=== PATIENT | female | born 1980 | race Caucasian/White ===

== ENCOUNTER 2019-08-07 09:42 | Outpatient (REF) | payer OTHER, SELFPAY ==
--- NOTE | 2019-08-07 09:00 | PAPFT_PTH ---
PATIENT: Jen Luke LOC: [facility] U#:[id number] AGE/SX: 39/F ROOM: RE08/07/[address]: Bi Scott : 1980 BED: DIS: 08/07/2019 SPEC #: [id number] RECD: 08/07/19 12:47 STATUS: BUNNY REWellington #: [id number] LEO: 08/07/19 09:[address]: Bi Scott DEPT: [facility] Cytology RECD BY: Luann Perez ENTERED: 08/07/19 12:47 SP TYPE: PAPFT OT DR: Unknown,Unknown Tissues: 1 - CX/ENDOCX FOR PAP SMEARS Procedures: PAP THIN PREP/UVM Screening HPV DNA PROBE Comments: [id number]
[2019-08-07 13:05] LABS: Anion Gap 8.5 mmol/L (3-11); BUN 15 mg/dL (7-18); CO2 26.5 mmol/L (21.0-32.0); CREATININE 0.83 mg/dL (0.55-1.02); Calcium 8.9 mg/dL (8.5-10.1); Calculated LDL 127 mg/dL; Chloride 103 mmol/L (98-107); Cholesterol 201 mg/dL (50-200); Glucose 105 mg/dL (70-100); HDL Cholesterol 57 mg/dL (40-60); Potassium 4.2 mmol/L (3.5-5.1); Sodium 138 mmol/L (136-145); Triglyceride 86 mg/dL (30-150)
== END 2019-08-07 10:02 ==
LOC: NCHCN 09:42
PROVIDERS: Visit Provider Specialist/Technologist Athletic Trainer
DX: Z00.00 Encounter for general adult medical examination without abnormal findings (principal); Z13.220 Encounter for screening for lipoid disorders; Z13.228 Encounter for screening for other metabolic disorders; Z12.4 Encounter for screening for malignant neoplasm of cervix; Z11.51 Encounter for screening for human papillomavirus (HPV)
CPT/HCPCS: 80048; 80061; 88142; 87624

== ENCOUNTER 2019-09-20 11:38 | Outpatient (REF) | payer OTHER, SELFPAY ==
--- NOTE | 2019-09-20 10:00 | ENDO_PTH ---
PATIENT: Jen Luke LOC: [facility] U#:[id number] AGE/SX: 39/F ROOM: RE09/20/[address]: Jon Coburn MD : 1980 BED: DIS: 09/20/2019 SPEC #: [id number] RECD: 09/20/19 17:21 STATUS: BUNNY REQ #: [id number] LEO: 09/20/19 10:[address]: Jon Coburn DEPT: Surgical Specimen RECD BY: Luann Perez ENTERED: 09/20/19 17:22 SP TYPE: Endo OTHR DR: iB Scott Unknown,Unknown Tissues: 1 - ENDOCERVICAL BX/CURRETTE 2 - CERVICAL BIOPSY 3 - CERVICAL BIOPSY Procedures: GROSS AND MICRO LEVEL 4 Comments: [id number]
== END 2019-09-20 11:58 ==
LOC: LBN 11:38
PROVIDERS: Visit Provider Obstetrics & Gynecology
DX: N87.1 Moderate cervical dysplasia (principal); R87.613 High grade squamous intraepithelial lesion on cytologic smear of cervix (HGSIL); R87.810 Cervical high risk human papillomavirus (HPV) DNA test positive
CPT/HCPCS: 88305

== ENCOUNTER 2020-07-10 00:28 | Outpatient (CLI) | payer OTHER, SELFPAY ==
--- NOTE | 2020-07-10 13:30 | ETT_ITS ---
APPROVED REPORT Exam: Exercise Treadmill Patient Location: Out-Patient Room/Bed: Stress Nurse: Lucille Middleton RN BMI: 0 Baseline Rhythm: Sinus Rhythm Comment: Rare PVC's Indications: Patient reports an increase in palpitations and chest discomfort over the last one and o ne half years. She describes her chest discomfort as ??? heavy flutter/emptiness??? in her upper mids ternal/left chest and in her back between her shoulder blades associated with right arm tingling and ???soreness??? and numbness in the fingers of her right hand fingers. She states these sensations get worse in the latter half of the day. She also reports occasionally her palpitations make her ???drop to my knees???, ???things get blurry???, ???so I took it down???. She reports these symptoms get bet ter with relaxing. Medical History Medical History: Palpitations, Obesity, Depression. Cardiac Medications: None, Allergies: Vicodin, Codeine, Pseudoephedrine. Cardiac Risk Factors: FHX of CAD, Smoking Previous Cardiac Procedures: None Pretest Chest Pain Characteristics: None reported per patient. Exercise History: Physically active Physical Disabilities: None Lung Sounds: Clear to auscultation Heart Sounds: Regular Stress Test Details Test: Exercise stress testing was performed using a Adalberto protocol. Rest Stress HR Resting HR Supine: 75 bpm Max Heart Rate (APMHR): 178 bpm Resting HR Standin bpm Target HR (85% APMHR): 151 bpm Max HR Achieved: 174 bpm % of APMHR: 97 HR response to stress: Normal HR response to stress BP Resting BP Supine: 132/78 mmHg Resting BP Standin/72 mmHg Max BP: 156/66 mmHg BP response to stress: Normal blood pressure response to stress. ECG Resting ECG: Sinus Rhythm Ectopy: Rare PVC's Stress ECG: Sinus Tachycardia ST Change: Normal Arrhythmia: None Recovery ECG: Sinus Rhythm Recovery ST Change: Normal Recovery Arrhythmia: None Clinical Reason for Termination: Fatigue Stress Symptoms: Patient reported arms burning Exercise duration: 9 min07 sec Highest Stage Reached: Stage 3: 3.4 mph at 14% grade. Exercise capacity: 10.31 METs Functional Capacity: Average Capacity Stress ECG Conclusion 1. The patient exercised for 9 minutes (10METS). 2. The patients had no symptoms of angina. 3. There was no evidence of ischemia on the ECG portion of the study. 4. The Sultana Score ( 8) estimates an annual cardiovascular mortality of 0% and a five year survival of 95%. Using the Sultana Score there is a low probability of any angiographic coronary disease. Stress Test Summary STAGE Time (mins) Speed (mph) Grade (%) HR BP SYMPTOMS METS Supine 75 132/78 Standing 91 124/72 1 3 1.7 10 119 128/70 4.6 2 6 2.5 12 152 140/64 7 3 9 3.4 14 174 10.2 1 min recovery 152 156/66 3 min recovery 141 144/68 6 min recovery 98 126/72
== END 2020-07-10 00:48 ==
PROVIDERS: PCP Nurse Practitioner Family; Visit Provider Internal Medicine Cardiovascular Disease
DX: R07.9 Chest pain, unspecified (principal); R00.2 Palpitations; I49.3 Ventricular premature depolarization; F17.210 Nicotine dependence, cigarettes, uncomplicated; Z82.49 Family history of ischemic heart disease and other diseases of the circulatory system
CPT/HCPCS: 93017

== ENCOUNTER 2020-11-19 11:51 | Outpatient (REF) | payer OTHER, SELFPAY ==
--- NOTE | 2020-11-19 11:00 | ENDO_PTH ---
PATIENT: Jen Luke LOC: [facility] U#:[id number] AGE/SX: 40/F ROOM: RE11/19/[address]: Keisha Holly : 1980 BED: DIS: 11/19/2020 SPEC #: [id number] RECD: 11/19/20 12:54 STATUS: BUNNY REWellington #: [id number] LEO: 11/19/20 11:[address]: Keisha Holly DEPT: Surgical Specimen RECD BY: Luann Perez ENTERED: 11/19/20 12:55 SP TYPE: Endo OTHR DR: Maribeth Mckeon Tissues: 1 - ENDOCERVICAL BX/CURRETTE 2 - CERVICAL BIOPSY Procedures: GROSS AND MICRO LEVEL 4 Comments: [id number]
== END 2020-11-19 12:11 ==
LOC: LBN 11:51
PROVIDERS: PCP Nurse Practitioner Family; Visit Provider Obstetrics & Gynecology Gynecology
DX: N87.1 Moderate cervical dysplasia (principal); N88.8 Other specified noninflammatory disorders of cervix uteri
CPT/HCPCS: 88305

== ENCOUNTER 2020-12-03 02:36 | Outpatient (CLI) | payer OTHER, SELFPAY ==
--- NOTE | 2020-12-03 | DI.US_ITS ---
EXAM: MG MAMMO DIAGNOSTIC BI and U/S breast RT complete CLINICAL HISTORY: DIAGNOSTIC, DARKENING OF SKIN AND NODULE, ABNL FINDINGS, N64.59. TECHNIQUE: Craniocaudal and mediolateral oblique Full Field Digital Mammography views with Computer Aided Diagnosis followed by Tomosynthesis and right breast ultrasound. COMPARISON: No previous for comparison. This is a baseline mammogram. FINDINGS: Mammography/Tomosynthesis: Masses/Architectural Distortion: None seen. Microcalcifictions: No suspicious pleomorphic-type are seen. Skin Thickening/Nipple Retraction: None. Right breast US: Echotexture: Normal appearance of the glandular tissue. Shadowing: No suspicious foci. Cyst: None. Solid lesions: There is an ovoid hypoechoic lesion within the skin layer measuring 0.8 x 0.3 x 0.7 cm . This is at the 7 o'clock position of the right breast 7 cm from the nipple. This corresponds to t he palpable abnormality. No posterior acoustic enhancement or shadowing is seen. There appears to b e evidence of a tract to the skin surface. No internal blood flow is seen. There is no communicatio n with underlying breast tissue. The findings are suspicious for a sebaceous cyst. Ductal dilation: None. IMPRESSION: 1. No evidence of malignancy is noted. The palpable abnormality corresponds to a nodule within the sk in layer as described above. This is suspicious for sebaceous cyst. 2. Unless there is more urgent need, follow-up screening mammography is recommended, as per [place] [employer] guidelines. 3. The findings were discussed with the patient on the date of the examination. BI-RADS Category 1 - Negative Breast Density - Category B - Scattered areas of fibroglandular density Breast density Category C or D implies that the patient has dense breast tissue. Dense breast tissue can make it harder to find cancer on a mammogram. Dense breast tissue is also associated with an incr eased risk of breast cancer. This information about the result of the mammogram report was provided to the patient to raise their awareness. Use this report when you speak with the patient about their risks for breast cancer, which includes their family history. At that time, you may recommend additional screening tests (Ultrasoun d or MRI) as these tests may add significant information. A negative radiographic report should not delay biopsy if a dominant or clinically suspicious mass is present. Up to ten percent of cancers are not identified on mammography. A negative report may reinforce clinical impression. Adenosis and dense breasts may obscure an underlying neoplasm. False positive reports average 6 to 10%. Patient will receive a letter notifying them of these results.
== END 2020-12-03 02:37 | disposition home or self-care (01) ==
LOC: DI 02:36
PROVIDERS: PCP Nurse Practitioner Family; Visit Provider Nurse Practitioner Family
DX: R92.8 Other abnormal and inconclusive findings on diagnostic imaging of breast (principal); N64.59 Other signs and symptoms in breast
CPT/HCPCS: 76642; 77062; 77066; G0279

== ENCOUNTER 2021-02-12 13:51 | Outpatient (REF) | payer OTHER, SELFPAY ==
--- NOTE | 2021-02-12 13:35 | CER_PTH ---
PATIENT: Jen Luke LOC: [facility] U#:[id number] AGE/SX: 40/F ROOM: RE02/12/[address]: Keisha Holly : 1980 BED: DIS: 02/12/2021 SPEC #: [id number] RECD: 02/12/21 17:55 STATUS: BUNNY REWellington #: [id number] LEO: 02/12/21 13:[address]: Keisha Holly DEPT: Surgical Specimen RECD BY: Luann Perez ENTERED: 02/12/21 17:55 SP TYPE: CER LONNY DR: Maribeth Mckeon Tissues: 1 - CERVICAL BIOPSY 2 - CERVICAL BIOPSY Procedures: GROSS AND MICRO LEVEL 5 Comments: [id number]
== END 2021-02-12 13:52 | disposition home or self-care (01) ==
LOC: LBN 13:51
PROVIDERS: PCP Nurse Practitioner Family; Visit Provider Obstetrics & Gynecology Gynecology
DX: N87.1 Moderate cervical dysplasia (principal)
CPT/HCPCS: 88305; 88307

== ENCOUNTER 2021-02-16 15:57 | Outpatient (REF) | payer OTHER, SELFPAY ==
[2021-02-18 12:53] LABS: COVID-19 RT-PCR UVMMC Result Negative (Negative)
== END 2021-02-16 15:58 | disposition home or self-care (01) ==
LOC: NCHCN 15:57
PROVIDERS: PCP Nurse Practitioner Family; Visit Provider Nurse Practitioner Family
DX: Z20.822 Contact with and (suspected) exposure to COVID-19 (principal); R50.9 Fever, unspecified; M79.18 Myalgia, other site
CPT/HCPCS: U0003

== ENCOUNTER 2021-02-19 03:58 | Outpatient (CLI) | payer OTHER, SELFPAY ==
[2021-02-18 14:41] LABS: Abs Immature Grans 0.02 10^3/uL (0.0-0.06); Absolute Basophil Count 0.03 10^3/uL (0.0-0.2); Absolute Eosinophil Count 0.13 10^3/uL (0.0-0.7); Absolute Lymphocyte Count 1.87 10^3/uL (1.2-3.4); Absolute Monocyte Count 0.83 10^3/uL (0.1-0.8); Absolute Neutrophil Count 3.89 10^3/uL (1.2-6.7); Basophils % 0.4; Eosinophils % 1.9; HCT 42.8 % (36.0-46.0); Immature Grans % 0.3; Lymphocytes % 27.6; MCH 30.1 pg (27.0-33.0); MCHC 32.7 % (32.0-36.0); Monocytes % 12.3; Neutrophils % 57.5; Nucleated RBC 0 %; Platelet Count 231 10^3/uL (130-400); RBC 4.65 10^6/uL (3.93-5.22); RDW 12.7 % (11.7-14.6); RDW-SD 42.6 fL; WBC 6.77 10^3/uL (4.4-10.8)
[2021-02-18 15:46] LABS: ALT 27 U/L (14-59); AST 16 U/L (15-37); Albumin 3.9 g/dL (3.4-5.0); Alkaline Phosphatase 85 U/L (46-116); Anion Gap 6.5 mmol/L (3-11); BUN 16 mg/dL (7-18); Bilirubin, Total 0.3 mg/dL (0.2-1.0); CO2 30.5 mmol/L (21.0-32.0); CREATININE 0.9 mg/dL (0.55-1.02); Calcium 9.3 mg/dL (8.5-10.1); Chloride 103 mmol/L (98-107); Glucose 89 mg/dL (74-106); Potassium 4.5 mmol/L (3.5-5.1); Sodium 140 mmol/L (136-145); Total Protein 7.4 g/dL (6.4-8.2)
== END 2021-02-19 03:59 | disposition home or self-care (01) ==
LOC: LBO 03:58
PROVIDERS: PCP Nurse Practitioner Family; Visit Provider Obstetrics & Gynecology Gynecology
DX: R50.9 Fever, unspecified (principal); Z98.890 Other specified postprocedural states
CPT/HCPCS: 36415; 80053; 85025

== ENCOUNTER 2022-01-14 12:30 | Outpatient (REF) | payer BC, SELFPAY ==
[2022-01-14 14:42] LABS: HCT 44.1 % (36.0-46.0); HGB 14.3 g/dL (11.2-15.7); MCH 29.5 pg (27.0-33.0); MCHC 32.4 % (32.0-36.0); MCV 90.9 fL (80-95); MPV 9.4 fL (8.0-11.0); Platelet Count 307 10^3/uL (130-400); RBC 4.85 10^6/uL (3.93-5.22); RDW 12.3 % (11.7-14.6); RDW-SD 41.3 fL; WBC 9.04 10^3/uL (4.4-10.8)
[2022-01-14 15:35] LABS: ALT 28 U/L (14-59); AST 16 U/L (15-37); Alkaline Phosphatase 91 U/L (46-116); BUN 15 mg/dL (7-18); Bilirubin, Total 0.4 mg/dL (0.2-1.0); CREATININE 0.7 mg/dL (0.55-1.02); Calcium 9.1 mg/dL (8.5-10.1); Chloride 102 mmol/L (98-107); Glucose 92 mg/dL (74-106); Potassium 4.6 mmol/L (3.5-5.1); Sodium 139 mmol/L (136-145); TSH (W/Ref FT4) 1.47 uIU/mL (0.36-3.74); Total Protein 7.3 g/dL (6.4-8.2); Vitamin B12 472 pg/mL (193-986)
== END 2022-01-14 12:31 | disposition home or self-care (01) ==
LOC: NCHCN 12:30
PROVIDERS: PCP Nurse Practitioner Family; Visit Provider Nurse Practitioner Family
DX: R00.2 Palpitations (principal); Z71.3 Dietary counseling and surveillance; E55.9 Vitamin D deficiency, unspecified
CPT/HCPCS: 80053; 82306; 85027; 82607; 84443

== ENCOUNTER 2022-03-18 08:30 | Outpatient (CLI) | payer BC, SELFPAY | END 2022-03-18 23:59 | disposition home or self-care (01) | LOC: RT 03-22 14:11 | PROVIDERS: PCP Nurse Practitioner Family; Visit Provider Nurse Practitioner Family | DX: R00.2 Palpitations (principal) | CPT/HCPCS: 93246 ==

== ENCOUNTER 2022-03-31 13:26 | Outpatient (REF) | payer BC, SELFPAY ==
--- NOTE | 2022-03-31 13:15 | PAPFT_PTH ---
PATIENT: Jen Luke LOC: [facility] U#:[id number] AGE/SX: 41/F ROOM: RE03/31/[address]: Keisha Holly : 1980 BED: DIS: 03/31/2022 SPEC #: [id number] RECD: 03/31/22 18:17 STATUS: BUNNY REWellington #: [id number] LEO: 03/31/22 13:[address]: Keisha Holly [facility] Cytology RECD BY: Luann Perez ENTERED: 03/31/22 18:17 SP TYPE: PAPFT OTHR DR: Maribeth Mckeon Tissues: 1 - CX/ENDOCX FOR PAP SMEARS Procedures: PAP THIN PREP/UVM Screening HPV DNA PROBE Comments: [id number]
== END 2022-03-31 13:27 | disposition home or self-care (01) ==
LOC: LBN 13:26
PROVIDERS: PCP Nurse Practitioner Family; Visit Provider Obstetrics & Gynecology Gynecology
DX: Z12.4 Encounter for screening for malignant neoplasm of cervix (principal); R87.611 Atypical squamous cells cannot exclude high grade squamous intraepithelial lesion on cytologic smear of cervix (ASC-H); Z11.51 Encounter for screening for human papillomavirus (HPV)
CPT/HCPCS: 88142; 87624

== ENCOUNTER 2022-06-24 15:22 | Outpatient (REF) | payer BC, SELFPAY ==
--- NOTE | 2022-06-24 13:45 | ENDO_PTH ---
PATIENT: Jen Luke LOC: [facility] U#:[id number] AGE/SX: 42/F ROOM: RE06/24/[address]: Keisha Holly : 1980 BED: DIS: 06/24/2022 SPEC #: [id number] RECD: 06/24/22 17:44 STATUS: BUNNY REWellington #: [id number] LEO: 06/24/22 13:[address]: Keisha Holly DEPT: Surgical Specimen RECD BY: Luann Perez ENTERED: 06/24/22 17:45 SP TYPE: Endo OTHR DR: Maribeth Mckeon Tissues: 1 - ENDOCERVICAL BX/CURRETTE 2 - CERVICAL BIOPSY Procedures: GROSS AND MICRO LEVEL 4 Comments: [id number]
== END 2022-06-24 15:23 | disposition home or self-care (01) ==
LOC: LBN 15:22
PROVIDERS: PCP Nurse Practitioner Family; Visit Provider Obstetrics & Gynecology Gynecology
DX: R87.610 Atypical squamous cells of undetermined significance on cytologic smear of cervix (ASC-US) (principal)
CPT/HCPCS: 88305

== ENCOUNTER 2022-08-20 16:47 | Outpatient (CLI) | payer BC, SELFPAY ==
--- NOTE | 2022-08-20 | DI.RAD_ITS ---
Exam(s) XR CHEST 2V PA LATERAL EXAM: XR CHEST 2V PA LATERAL CLINICAL HISTORY: SHORTNESS OF BREATH-R06.02. TECHNIQUE: 2D digital imaging was performed. COMPARISON: No exams were available for comparison FINDINGS: 2 views: Heart size is normal. The mediastinum is not widened. Lungs are clear. No infiltrates nor pleural effusions. IMPRESSION: No acute pulmonary findings. DATA REPOSITORY: RADIATION DOSE DELIVERED:
== END 2022-08-20 17:07 ==
LOC: DI 16:48
PROVIDERS: PCP Nurse Practitioner Family; Visit Provider Physician Assistant Medical
DX: R06.02 Shortness of breath (principal)
CPT/HCPCS: 71046

== ENCOUNTER 2022-08-20 20:44 | Outpatient (REF) | payer BC, SELFPAY ==
[2022-08-22 10:22] LABS: COVID-19 RT-PCR UVMMC Result Negative (Negative)
== END 2022-08-20 20:45 | disposition home or self-care (01) ==
LOC: LBN 20:44
PROVIDERS: PCP Nurse Practitioner Family; Visit Provider Physician Assistant Medical
DX: Z20.822 Contact with and (suspected) exposure to COVID-19 (principal); R06.02 Shortness of breath
CPT/HCPCS: U0003

== ENCOUNTER 2022-09-04 14:20 | Emergency (ER) | payer BC, SELFPAY ==
--- NOTE | 2022-09-04 14:30 | RT.EKG_ITS ---
APPROVED REPORT Exam: Resting ECG Reason for Exam: SYNCOPE Patient Location: E HR:55 bpm ECG Measurements Heart Rate 55 AXIS NV 197 P 46 QRSd 74 QRS 33 QT 395 T 13 QTc 377 Conclusion Sinus bradycardia...rate< 60 Low voltage, precordial leads...precordial leads <1.0mV. Sinus. Normal axis. No STEMI. I have reviewed and interpreted ECG and agree with software generated interpretation.
[2022-09-04 14:44] VITALS: BP 123/70; PULSE 70; RESP 22; TEMP 36.6; O2SAT 100
[2022-09-04 15:08] VITALS: RESP 22
[2022-09-04 15:20] LABS: Abs Immature Grans 0.02 10^3/uL (0.0-0.06); Absolute Basophil Count 0.03 10^3/uL (0.0-0.2); Absolute Eosinophil Count 0.21 10^3/uL (0.0-0.7); Absolute Lymphocyte Count 1.89 10^3/uL (1.2-3.4); Absolute Neutrophil Count 4.65 10^3/uL (1.2-6.7); Basophils % 0.4; Eosinophils % 2.8; HCT 41.4 % (36.0-46.0); HGB 13.6 g/dL (11.2-15.7); Immature Grans % 0.3; Lymphocytes % 25.5; MCHC 32.9 % (32.0-36.0); MCV 91 fL (80-95); MPV 9.3 fL (8.0-11.0); Monocytes % 8.1; Neutrophils % 62.9; Platelet Count 274 10^3/uL (130-400); RBC 4.53 10^6/uL (3.93-5.22); RDW 12.5 % (11.7-14.6); RDW-SD 42.2 fL
--- NOTE | 2022-09-04 15:27 | W.ED.GENAD ---
Discharge Plan Disposition Patient Disposition: HOME Condition: Stable Discharge Details Clinical Impression: Dizziness, Syncope Primary Care Provider: Maribeth Mcekon ED Provider: Luann Rowley Home Meds and New Rx's Prescriptions: New meclizine 25 mg tablet 25 mg PO BID PRNQty: 10 0RF Continued cyanocobalamin (vitamin B-12) [Vitamin B-12] 500 mcg tablet 500 mcg PO DAILY Digestive Advantage Probio-Pre 400 million cell tablet,chewable PO ascorbate calcium (vitamin C) 500 mg tablet 500 mg PO DAILY Glucosa Immune Booster Capsule PO Label Comments: 06/23/22- Pt takes immune booster OTC, unsure of brand. Gardasil 9 (PF) 0.5 mL syringe 0.5 ml IM ONCE Qty: 1 2RF Rx Instructions: as a single dose, repeat inj in 1mo and 5mo from initial injection Discharge Instructions Instructions: Syncope (ED), Dizziness (ED) Additional Instructions: Please follow-up with your PCPs office for further evaluation on tuesday follow-up for holter, this order has placed Follow-up with ear nose and throat regarding your right ear tinnitus For your dizziness you may try an Zuleima maneuver at home, there should be a video on how to perform this procedure You may also take meclizine as needed for dizziness Return earlier should you have any worsening complaints no driving until your symptoms resolve Referrals: Maribeth Mckeon [Primary Care Provider] - 1 day Discharge Orders Other Ambulatory Orders: Holter Monitor (Routine) Timeframe: 1 Week Facility: [facility] - Location: Respiratory Therapy Ordered By: Luann Rowley Discharge Data Discharge Date/Time-TO BE ENTERED AT DEPARTURE: 09/04/22 18:41 Medical Decision Making <Rudy Espitia NP - Last Filed: 09/07/22 11:13> Off patient presenting the emergency department chief complaint of dizziness and lightheadedness. She states this is been going on the past couple days but has had some odd symptoms like this before. She sometimes feels a whooshing sound in her right ear and dizziness seems to be with positional changes or movement. She does state that she has fallen down the stairs and last night fell just try to get out of bed but symptoms are intermittent and not persistent. Denies any chest pain but does state some slight shortness of breath. Physical exam is unremarkable for any focal neurological findings, clear lung sounds, bradycardia noted on EKG but otherwise normal sinus rhythm on monitor in room with normal cardiac sounds and exam is otherwise unremarkable. We will plan on doing work-up including COVID testing and CTA of the head and neck. <NESSA Valderrama - Last Filed: 09/04/22 21:31> Medical Records Medical records narrative: LB 1600: Care accepted from [facility] pending CTA head and neck and remainder of diagnostic labs Fully alert and oriented with a nonfocal neurological exam CTA with possible A1 occlusion versus atresia Case discussed with , neurology at [facility] and does not find any significant occlusive anomaly on patient CT scan Patient is ambulatory with steady gait, dizziness has resolved She is referred back to her primary care physician for outpatient reassessment She is also scheduled for Holter monitor Her symptoms are vasovagal in nature secondary to vertiginous symptoms The differential is of course labyrinthitis I suspect her symptoms are peripheral in nature Otherwise nonfocal neurological exam Referred back to ENT for possible tendinitis ongoing for 3 years Will try Flonase [id number]-[id number] and decongestion. And her symptoms Return precautions discussed and patient expressed understanding, HPI <Rudy Espitia NP - Last Filed: 09/07/22 11:13> General Mode of arrival: ambulatory. Date/Time Provider Initiated Documentation: 09/04/22 14:50. Limitations to Documentation: no limitations. Information obtained by: patient, family and RN notes reviewed. History of Present Illness 42 year old F presents to the emergency department with the chief complaint of Dizziness, falls, shortness of breath, subjective fever, described as moderate, Patient started experiencing this day(s) (3) and it has been constant. No relieving factors improve symptom(s), No exacerbating factors reported . Related Data Home Medications Medication Instructions Recorded Confirmed Bacillus coagulans 400 million cell PO 11/19/20 07/02/22 cell chewable tablet (Digestive Advantage Probiotics-Prebiotic) ascorbate calcium (vitamin C) 500 500 mg PO DAILY 11/19/20 07/02/22 mg tablet cyanocobalamin (vitamin B-12) 500 500 mcg PO DAILY 11/19/20 07/02/22 mcg tablet (Vitamin B-12) herbal complex no.306 (Glucosa cap PO 06/24/22 07/02/22 Immune Booster capsule) human papillomav vac,9-suhail(PF) 0.5 0.5 ml IM ONCE #1 mL 07/02/22 07/02/22 mL intramuscular syringe (Gardasil 9 (PF)) meclizine 25 mg tablet 25 mg PO BID PRN #10 tabs 09/04/22 Previous Rx's Medication Instructions Recorded human papillomav vac,9-suhail(PF) 0.5 0.5 ml IM ONCE #1 mL 07/02/22 mL intramuscular syringe (Gardasil 9 (PF)) meclizine 25 mg tablet 25 mg PO BID PRN #10 tabs 09/04/22 Allergies Allergy/AdvReac Type Severity Reaction Status Date / Time acetaminophen [From Vicodin] Allergy Severe Verified 03/31/22 12:50 codeine Allergy Severe Verified 06/24/22 13:33 hydrocodone [From Vicodin] Allergy Severe Verified 06/24/22 13:33 pseudoephedrine Allergy Severe Verified 06/24/22 13:33 pain killers Allergy Intermediate Uncoded 06/24/22 13:33 General Stated Complaint: Dizzy/Sync MIRACLE: 3 Review of Systems <Rudy Espitia NP - Last Filed: 09/07/22 11:13> Constitutional Constitutional: Reports chills, Reports fever(s), Reports headache(s), Reports lethargy and Reports malaise Eyes Eyes: Denies change in vision ENT Ears, Nose, Mouth, and Throat: Reports vertigo, Reports dizziness, Reports otalgia, Reports headache(s) and Reports sore throat Cardiovascular Cardiovascular: Denies chest pain, Reports syncope, Denies rapid heart rate and Reports dyspnea Respiratory Respiratory: Denies cough and Reports dyspnea Gastrointestinal Gastrointestinal: Denies abdominal pain, Denies diarrhea and Denies vomiting Genitourinary Genitourinary: Denies dysuria Integumentary/Breasts Skin/Breast: Denies rash, Denies unusual bruising and Denies wounds Neurologic Neurologic: Reports vertigo, Reports dizziness, Reports syncope, Reports headache(s), Denies localized weakness and Denies paresthesias PFSH <Rudy Espitia NP - Last Filed: 09/07/22 11:13> All Active Problems (Updated 09/04/22 @ 18:17 by NESSA Valderrama) Dizziness (Acute) Syncope (Chronic) Abnormal cervical Papanicolaou smear (Acute) 03/2022. Pap: ASCUS cannot r/o HGSIL. Lab test negative for COVID-19 virus (Acute) Fever (Acute) Right carpal tunnel syndrome (Acute) Abnormal auditory perception of both ears (Acute) Pulsatile tinnitus, right ear (Acute) Family history of ischemic heart disease (Acute) Tobacco use (Acute) Chest pain (Acute) QUYEN II (cervical intraepithelial neoplasia II) (Acute) 2020. On Pap. LEEPCIN2. clear margins. HSIL (high grade squamous intraepithelial lesion) on Pap smear of cervix (Acute) Medical History (Updated 09/04/22 @ 18:17 by NESSA Valderrama) Abnormal breast finding Atypical chest pain Depression Dyspepsia History of abnormal cervical Pap smear Hypomania Delia Marijuana use Nicotine dependence Obesity Palpitations Paresthesia of both hands Skin lesion Social History Smoking/Tobacco Use Status: Former Tobacco Use Quit Date: 12/01/20 Second Hand Exposure: No Counseling given: counseling >3 minutes Smoking risk assessment performed?: Yes Alcohol Intake: never Drug use: Daily Substance use type: marijuana Household members: spouse and children Housing: house Number of Children: 1 Pets and animals: Yes Pets and animals: cat(s) and dog(s) Current gender identity: decline to answer What is your relationship status?: Panel score (0-1 are the most socially isolated patients): 1 What type of physical activity do you participate in: walking and additional Seatbelt use: always Do you feel safe at home: Yes Do you feel safe in your relationship?: Yes Additional Social history: Moved from [place] 2 years ago with and biological daughter who is 24 and an artist. She has two step-children who still live in [place]. History History 1 Para 1 Hx # Term Pregnancies Multiple births Hx # Pregnancies Ectopic pregnancies AB induced Hx Number of Living Children 1 AB spontaneous Exam <Rudy Espitia NP - Last Filed: 09/07/22 11:13> Const General: cooperative, healthy appearing and no acute distress Orientation: alert, awake and oriented x3 HENMT Head: normal to inspection Ears: hearing grossly normal bilaterally and TM's normal bilaterally Mouth: oral mucosae normal and moist mucous membranes Throat: posterior oropharynx normal Eyes General: appearance normal, both eyes and all related structures Visual Bee: normal visual bee by confrontation Alignment and Position: alignment normal Periorbital: periorbital findings normal Eyelids: eyelids normal Sclera: sclerae normal Pupils: PERRL EOM: EOM intact bilaterally and No nystagmus Neck Neck: normal visual inspection, full ROM, no lymphadenopathy and no meningeal signs Resp Effort & Inspection: normal respiratory effort and able to speak in complete sentences Auscultation: clear to auscultation bilaterally Cardio Rate: regular rate Rhythm: regular rhythm Heart Sounds: S1 normal and S2 normal Neuro General: patient alert, patient awake, patient oriented x3, gait normal, tone normal, moves all extremities, CN's II-XI intact bilaterally and not confused Cranial Nerves: no nystagmus Cognition: normal cognition Speech: speech normal Motor: muscle tone normal throughout, no movement abnormalities noted and no fasciculations Sensory Exam: no sensory deficits noted Coordination: Does not sway with eyes open Course <Rudy Espitia NP - Last Filed: 09/07/22 11:13> Vital Signs Vital signs: Vital Signs Temperature 36.6 C 09/04/22 14:44 Pulse 70 09/04/22 14:44 Respiratory Rate 22 09/04/22 14:44 Blood Pressure 123/70 09/04/22 14:44 Pulse Oximetry 100 09/04/22 14:44 Temperature 36.6 C 09/04/22 14:44 Temperature Source Tympanic 09/04/22 14:44 Pulse 70 09/04/22 14:44 Respiratory Rate 22 09/04/22 15:08 Respiratory Effort 09/04/22 15:08 Respiratory Depth Normal 09/04/22 15:08 Respiratory Pattern Normal 09/04/22 15:08 Blood Pressure 123/70 09/04/22 14:44 Pulse Oximetry 100 09/04/22 14:44 Oxygen Delivery Method Room Air 09/04/22 14:44 Oxygen Flow Rate 0 09/04/22 14:44 Lab/Test Results Lab/Test Results: Laboratory Tests Range/Units 09/04/22 15:08 WBC (4.4-10.8) 10^3/uL 7.40 RBC (3.93-5.22) 10^6/uL 4.53 Hgb (11.2-15.7) g/dL 13.6 Hct (36.0-46.0) % 41.4 MCV (80-95) fL 91 MCH (27.0-33.0) pg 30.0 MCHC (32.0-36.0) % 32.9 RDW (11.7-14.6) % 12.5 Plt Count (130-400) 10^3/uL 274 MPV (8.0-11.0) fL 9.3 Immature Gran % 0.3 Neutrophils % 62.9 Lymphocytes % 25.5 Monocytes % 8.1 Eosinophils % 2.8 Basophils % 0.4 Nucleated RBC % (0.0-0.3) % 0.0 Absolute Neutrophils (1.2-6.7) 10^3/uL 4.65 Absolute Lymphocytes (1.2-3.4) 10^3/uL 1.89 Absolute Monocytes (0.1-0.8) 10^3/uL 0.60 Absolute Eosinophils (0.0-0.7) 10^3/uL 0.21 Absolute Basophils (0.0-0.2) 10^3/uL 0.03 Sign Out <Rudy Espitia NP - Last Filed: 09/07/22 11:13> Sign Out Data: Sign Out Comment: Patient pending labs and CT imaging and disposition. Last updated by Rudy Espitia NP at 09/04/22 15:33
[2022-09-04 15:48] LABS: ALT 18 U/L (14-59); AST 17 U/L (15-37); Albumin 3.8 g/dL (3.4-5.0); Alkaline Phosphatase 77 U/L (46-116); BUN 20 mg/dL (7-18); Bilirubin, Total 0.4 mg/dL (0.2-1.0); CREATININE 0.9 mg/dL (0.55-1.02); Calcium 9.1 mg/dL (8.5-10.1); Chloride 105 mmol/L (98-107); Estimated GFR 80.84 (mL/min/1.73m2); Glucose 88 mg/dL (74-106); Magnesium 1.8 mg/dL (1.8-2.4); Potassium 4.3 mmol/L (3.5-5.1); Sodium 141 mmol/L (136-145); Total Protein 7.4 g/dL (6.4-8.2); Troponin I < 50 ng/L (<or=60)
[2022-09-04 15:53] LABS: D-Dimer 224 ng/mlFEU (<500)
[2022-09-04 15:57] LABS: COVID-19 PCR Negative (Negative); Influenza A PCR Negative (Negative); Influenza B PCR Negative (Negative); RSV PCR Negative (Negative)
[2022-09-04 15:58] LABS: Source Nasopharynx
[2022-09-04 16:10] LABS: Bilirubin Negative (Negative); Blood Negative (Negative); Clarity Sl Cloudy (Clear); Glucose Negative (Negative); Ketones 15 mg/dL (Negative); Leukocyte Esterase Negative (Negative); Nitrite Negative (Negative); Specific Gravity >= 1.030 (1.005-1.025); Urobilinogen 0.2 EU/dL (Up TO 0.2); pH 5.5 (5-8)
--- NOTE | 2022-09-04 16:30 | DI.RAD_ITS ---
Exam(s) XR CHEST 2V PA LATERAL EXAM: XR CHEST 2V PA LATERAL CLINICAL HISTORY: shortness of breath. TECHNIQUE: 2D digital imaging was performed. COMPARISON: CR XR CHEST 2V PA LATERAL from 08/20/2022 FINDINGS: 2 views: Heart size is normal. The mediastinum is not widened. Lungs are clear. No infiltrates nor pleural effusions. IMPRESSION: No acute pulmonary findings. DATA REPOSITORY: RADIATION DOSE DELIVERED:
--- NOTE | 2022-09-04 16:30 | DI.CT_ITS ---
Exam(s) CT BRAIN NECK CTA EXAM: CT BRAIN NECK CTA CLINICAL HISTORY: dizziness, DE LEON, recurrent syncope. TECHNIQUE: Imaging Protocol: Axial CT angiography was performed with multi-slice acquisition and mu lti-planar and/or 3D reconstructions. CONTRAST MATERIAL: Intravenous: Omnipaque 350 Contrast volume:structured data in ml COMPARISON: No exams were available for comparison FINDINGS: CTA Neck W: Aortic arch anatomy: The aortic arch anatomy is conventional and there is no significant stenosis at the origin of the great vessels off of the aortic arch. No intimal flap evident. Anterior circulation: Both common carotid arteries ascend with normal luminal diameters. At the level the carotid bulbs and proximal internal carotid arteries there is minimal plaque without hemodynamically significant stenosis evident. Above this level the internal carotid arteries are nicely patent in the upper neck. Posterior circulation: Vertebral arteries originated conventional fashion off of the subclavian arteries and there is no obv ious stenosis at the origin of the vertebral arteries. Left vertebral artery is dominant. At the skull base both vertebral arteries contribute to the formation of the basilar artery. CTA Brain W: Anterior circulation: Both internal carotid arteries are patent in the skull base-carotid canals as well as within the cave rnous sinuses. The supraclinoid aspects of the ICAs are patent. Left A1 segment is patent. Right A1 segment is not opacified. Both anterior cerebral arteries are opacified. No aneurysm at the level of the anterior communicating artery. Both middle cerebral arteries are patent with no evidence of significant stenosis nor intraluminal th rombus. There also no aneurysms of these vessels. Posterior circulation: The basilar artery ascends in the midline. Distally it gives off patent bilateral superior cerebella r arteries. Above this level the basilar artery terminates as patent bilateral posterior cerebral arteries. There is no evidence of aneurysm at the tip of the basilar artery nor elsewhere in the cjmhwn-od-Ejti is. CT BRAIN: There is no evidence of intracranial hemorrhage, mass effect, or shift of midline structures. There are no extra-axial fluid collections. Ventricles are not enlarged or shifted. There are no ring enh ancing lesions in the brain and no abnormal meningeal enhancement. IMPRESSION: 1. Patent carotid arteries in the neck. No hemodynamically significant stenosis. No aneurysms. 2. Patent vertebral arteries. 3. Patent intracranial arteries. Right A1 segment is occluded or developmentally absent. However, b oth anterior cerebral arteries are opacified. The right is opacified via the anterior communicating artery. No acute intracranial findings. No ring enhancing lesions in the brain and no abnormal meningeal enh ancement. RADIATION DOSE DELIVERED: 2,087.39mGy.cm Total DLP DATA REPOSITORY: All CT scans at this facility are submitted to the National Radiology Data Registry (NRDR) Dose Index Registry (DIR) with the [employer] (ACR). RADIATION OPTIMIZATION: All CT scans at this facility use at least one of these dose optimization te chniques: automated exposure control; mA and/or kV adjustment per patient size (includes targeted exa ms where dose is matched to clinical indication); or iterative reconstruction.
[2022-09-04] MEDS: Omnipaque 350 MG/ML 100 ML BTL IJ (16:48)
--- NOTE | 2022-09-04 17:27 | DI.VRAD_ITS ---
PROCEDURE INFORMATION: Exam: XR Chest Exam date and time: 09/04/2022 5:14 PM Age: 42 years old Clinical indication: Other: SOB TECHNIQUE: Imaging protocol: Radiologic exam of the chest. Views: 2 views. COMPARISON: CR XR CHEST 2V PA LATERAL 08/20/2022 4:13 PM FINDINGS: Lungs: Unremarkable. No consolidation. Pleural spaces: Unremarkable. No pleural effusion. No pneumothorax. Heart/Mediastinum: Unremarkable. No cardiomegaly. Bones/joints: Unremarkable. IMPRESSION: No evidence for acute abnormality in the chest. Dictated and Authenticated by: Maryam Vasquez MD. Ordering:DION Kong MD
--- NOTE | 2022-09-04 17:39 | DI.VRAD_ITS ---
Addendum created by Maryam Vasquez MD on 09/04/2022 5:42:12 PM EDT: I discussed case findings with Luann Rowley 09/04/2022 5:41 PM EDT. Initial report created on 09/04/2022 5:38:25 PM EDT: PROCEDURE INFORMATION: Exam: CTA Head With Contrast, Arteriography Exam date and time: 09/04/2022 4:50 PM Age: 42 years old Clinical indication: Other: Dizziness, DE LEON, syncope TECHNIQUE: Imaging protocol: Computed tomographic angiography of the head with contrast. Exam focused on the arteries. 3D rendering (Not supervised by radiologist): MIP and/or 3D reconstructed images were created by the technologist. Contrast material: OMNIPAQUE 350; Contrast volume: 100 ml; Contrast route: INTRAVENOUS (IV); COMPARISON: No relevant prior studies available. FINDINGS: ANTERIOR CIRCULATION: Right internal carotid artery: Intracranial segment is patent with no significant stenosis. No aneurysm. Right middle cerebral artery: No occlusion or significant stenosis. No aneurysm. Right anterior cerebral artery: The right A1 segment is atretic or occluded. New lines Left internal carotid artery: Intracranial segment is patent with no significant stenosis. No aneurysm. Left middle cerebral artery: No occlusion or significant stenosis. No aneurysm. Left anterior cerebral artery: No occlusion or significant stenosis. No aneurysm. POSTERIOR CIRCULATION: Right vertebral artery: No occlusion or significant stenosis. No aneurysm. Left vertebral artery: No occlusion or significant stenosis. No aneurysm. Basilar artery: No occlusion or significant stenosis. No aneurysm. Right posterior cerebral artery: No occlusion or significant stenosis. No aneurysm. Left posterior cerebral artery: No occlusion or significant stenosis. No aneurysm. Brain: No definite mass, mass effect, or midline shift. Cerebral ventricles: No ventriculomegaly. Bones/joints: Unremarkable. No acute fracture. Soft tissues: Unremarkable. IMPRESSION: Occluded or atretic right-sided A1 segment. PROCEDURE INFORMATION: Exam: CTA Neck With Contrast Exam date and time: 09/04/2022 4:50 PM Age: 42 years old Clinical indication: Other: Dizziness, DE LEON, syncope TECHNIQUE: Imaging protocol: Computed tomographic angiography of the neck with contrast. 3D rendering (Not supervised by radiologist): MIP and/or 3D reconstructed images were created by the technologist. Contrast material: OMNIPAQUE 350; Contrast volume: 100 ml; Contrast route: INTRAVENOUS (IV); COMPARISON: CR XR CHEST 2V PA LATERAL 08/20/2022 4:13 PM FINDINGS: Right common carotid artery: No stenosis. No dissection or occlusion. Right internal carotid artery: No stenosis of the extracranial segment. No dissection or occlusion. Right external carotid artery: No occlusion or stenosis of the origin. Left common carotid artery: No stenosis. No dissection or occlusion. Left internal carotid artery: No stenosis of the extracranial segment. No dissection or occlusion. Left external carotid artery: No occlusion or stenosis of the origin. Right vertebral artery: No stenosis. No dissection or occlusion. Left vertebral artery: Left vertebral artery dominant. New lines there is some beam hardening artifact from the patient's jewelry. Soft tissues: Normal. No significant soft tissue swelling. Bones/joints: No acute fracture. IMPRESSION: No evidence for hemodynamically significant stenosis or occlusion. REFERENCES: NASCET CRITERIA. The degree of stenosis in the cervical segment of the internal carotid artery is based on NASCET criteria. Normal is no stenosis. Mild is less than 50% stenosis. Moderate is 50-69% stenosis. Severe is 70% to 99% stenosis. Total occlusion is no detectable patent lumen. Dictated and Authenticated by: Maryam Vasquez MD. Ordering:DION Kong MD
[2022-09-04 18:34] VITALS: BP 118/77; PULSE 74; RESP 16; TEMP 36.6; O2SAT 100
--- NOTE | 2022-09-04 18:36 | NUR.NOTE ---
Nursing Note: CM FOR PCP FOLLOW UP
== END 2022-09-04 18:41 | disposition home or self-care (01) ==
PROVIDERS: Nurse Practitioner Family; Emergency Provider Physician Assistant; PCP Nurse Practitioner Family
DX: R55 Syncope and collapse (principal); R42 Dizziness and giddiness; Z20.822 Contact with and (suspected) exposure to COVID-19
CPT/HCPCS: 70496; 70498; 80053; 81025; 87637; 93005; 96360; 99285; 71046; 81003; 83735; 84484; 85025; 85379; 93010; J3490

== ENCOUNTER 2022-09-15 17:58 | Outpatient (REF) | payer BC, SELFPAY ==
[2022-09-15 14:44] LABS: NT-proBNP 11 pg/mL (<300)
[2022-09-15 14:59] LABS: D-Dimer 281 ng/mlFEU (<500)
== END 2022-09-15 17:59 | disposition home or self-care (01) ==
LOC: NCHCN 17:58
PROVIDERS: PCP Nurse Practitioner Family; Visit Provider Internal Medicine
DX: R06.09 Other forms of dyspnea (principal); R06.02 Shortness of breath; R00.2 Palpitations
CPT/HCPCS: 83880; 85379

== ENCOUNTER 2022-09-30 09:45 | Outpatient (CLI) | payer BC, SELFPAY ==
--- NOTE | 2022-10-06 13:30 | HOLTER_ITS ---
APPROVED REPORT Conclusion This is a 48-hour Holter monitor Rhythm throughout was sinus with an average heart rate of 85. Minimum was 68, maximum 119 There were rare atrial and ventricular ectopic beats The monitor had a lot of motion artifact. There was no atrial fibrillation, no ventricular tachycard ia, no SVT, no high-grade AV block, no pauses greater than 3 seconds There were no apparent patient symptoms
== END 2022-09-30 09:46 | disposition home or self-care (01) ==
PROVIDERS: PCP Nurse Practitioner Family; Visit Provider Internal Medicine
DX: R55 Syncope and collapse (principal)
CPT/HCPCS: 93225; 93226

== ENCOUNTER → 2022-10-05 02:39 | Outpatient (CLI) | payer BC, SELFPAY ==
--- NOTE | 2022-10-05 07:30 | DI.US_ITS ---
APPROVED REPORT EXAM: Comprehensive 2D, Doppler, and color-flow Echocardiogram Patient Location: Out-Patient Battery Starter: Andreea Huston RDCS (AE) Indications: SIERRA Other Information Study Quality: Adequate Conclusion Normal left ventricular wall thickness and chamber size. Estimated ejection fraction is 60%. Wall m otion is normal Normal right ventricular size and systolic function Both atria are normal in size There is no structural or hemodynamically significant valvular disease Estimated right ventricular systolic pressure is normal at 16 mmHg Wall motion Left Ventricle The left ventricle is normal size. The left ventricular systolic function is normal. The left ventric ular ejection fraction is within the normal range. There is normal left ventricular wall thickness. T here is normal LV segmental wall motion. There is no ventricular septal defect visualized. LVEF is 60 %. Right Ventricle The right ventricle is normal size. The right ventricular systolic function is normal. The RVSP is 16 .2_ mmHg. Atria The left atrium size is normal. The right atrium size is normal. The interatrial septum is intact wit h no evidence for an atrial septal defect. Aortic Valve The aortic valve is normal in structure. Aortic valve is trileaflet. There is no aortic valvular sten osis. No aortic regurgitation is present. Mitral Valve The mitral valve is normal in structure. No evidence of mitral valve stenosis. Trace to mild mitral r egurgitation. Tricuspid Valve The tricuspid valve is normal in structure. There is no tricuspid valve stenosis. Trace tricuspid reg urgitation. Pulmonic Valve The pulmonary valve is normal in structure. There is no pulmonic valvular stenosis. Trace pulmonic re gurgitation. Great Vessels The aortic root is normal in size. The ascending aorta is borderline Aortic arch is normal in caliber . dilated. IVC is normal in size and collapses >50% with inspiration. Pericardium There is no pericardial effusion. 2D Dimensions IVSD d PLAX 0.74 cm F: 0.6-1.0 LV Vol A2C d MOD 86.7 mL LVPW d PLAX 0.81 cm F: 0.6 - 1.0 LV Vol A4C d MOD 105.3 mL LVID d PLAX 4.89 cm F: 3.8 - 5.2 LA vol/ BSA A2C s A-L 15.3 mL/m2 LVDs 3.10 cm F: 2.2 - 3.5 LA vol/ BSA A4C s A-L 14.6 mL/m2 Ao Root d 2.75 cm F: 2.7 - 3.3 LA Vol/ BSA Biplane s A-L 15.2 mL/m2 RA Area A4C 9.18 cm2 LA Area A4C s MOD 12.64 cm2 RA Vol/ BSA A4C s A-L 9.2 mL/m2 LA Area A2C s MOD 13.16 cm2 Ao Asc Diam d 3.20 cm F: 2.3 - 3.1 LV EF A4C MOD 58.8 % LV EF Teichholz 66.1 % LV EF A2C MOD 60.9 % LVEF (Kothari's) 58.59 % F: 54 - 74 LV EF Biplane MOD 58.6 % LV Volume 71.56 mL F: 46 - 106 SV 57.13 mL LV Volume Index 33.59 mL/m2 F: 29 - 61 SV Index 26.73 mL/m2 LV Vol Biplane MOD 97.5 mL FS 36.45 % M-Mode TAPSE 1.93 cm (M/F) >1.7 LV Diastology MV E' medial 0.109 (>0.07 m/s) E/A Ratio 0.9 LV E/e MED 5.75 (<14) MV E Vmax 0.63 (0.4-1.3 m/s) MV E' lateral 0.102 (>0.1 m/s) MV A Vmax 0.70 (0.4-1.3 m/s) LV E/e LAT 6.15 (<14) MV E/A Ratio 0.85 MV E/E' medial 5.80 MV E/E' lateral 6.19 Aortic Valve LVOT Area 3.20 cm2 AoV Area Vmax 2.64 cm2 LVOT Vmax 0.99 m/s AoV Area/ BSA (Vmax) 1.23 cm2/m2 LVOT Mean Miky. 0.60 m/s MUNA Mean Miky. 2.24 cm2 LVOT Peak Grad 3.9 mmHg MUNA Mean Miky. Index 1.05 cm2/m2 LVOT Mean Grad 1.8 mmHg LVOT VTI 0.202 m LVOT Diam s 2.00 cm AoV Vmax 1.20 m/s Velocity Ratio 0.82 AoV Mean Miky. 0.85 m/s AoV Peak Grad 5.8 mmHg LVOT SV 64.84 mL AoV Mean Grad 3.2 mmHg AoV VTI 0.249 m AoV Area VTI 2.60 cm2 AoV Area/ BSA (VTI) 1.22 cm/m2 Mitral Valve MV DT 201 (160-240 msec) MV PHT 58 msec MV Area PHT 3.77 cm2 MV VTI 0.217 m MV Area VTI 2.99 (4.0-6.0 cm2) Pulmonary Valve PV Vmax 0.94 (0.5-1.5 m/s) RVOT Peak Gr. 1.98 mmHg PV Peak Grad 3.5 mmHg RVOT Mean Gr. 1.00 mmHg PV Mean Grad 1.7 mmHg RVOT VTI 0.165 m PV VTI 0.202 m RVOT Vmax 0.70 m/s Tricuspid Valve TR Peak Grad 13.2 mmHg TR Vmax 1.82 m/s RA Pressure 3.00 mmHg RVSP (TR) 16.2 mmHg
== END ==
PROVIDERS: PCP Nurse Practitioner Family; Visit Provider Internal Medicine
DX: R06.09 Other forms of dyspnea (principal)
CPT/HCPCS: 93306

== ENCOUNTER 2022-10-12 01:35 | Outpatient (CLI) | payer BC, SELFPAY ==
--- NOTE | 2022-10-12 07:45 | DI.MRI_ITS ---
Exam(s) MR IAC BRAIN WO/W EXAM: MR IAC BRAIN WO/W CLINICAL HISTORY: RT TINNITUS, H93.11. TECHNIQUE: Multiplanar multisequence MRI of the brain and internal auditory canals was performed. CONTRAST MATERIAL: IV Contrast: 20 mL of Magnevist contrast administered. COMPARISON: Comparison CT brain is 09/04/2022. FINDINGS: VENTRICLES AND EXTRA AXIAL SPACES: Normal in size and morphology for the patient's age. HEMORRHAGE: None. CEREBRAL PARENCHYMA: No focus of restricted diffusion to suggest acute infarct. No space-occupying le marisel identified. MIDLINE SHIFT: None. BRAINSTEM/CEREBELLUM: Normal. CALVARIUM: Normal. ENHANCEMENT: No suspicious enhancement identified. VISUALIZED PARANASAL SINUSES/MASTOIDS: Clear. CHENEGA OF ESTEBAN: Normal flow void. PITUITARY GLAND: Unremarkable. IAC/CP ANGLE: The internal auditory canals are within normal limits. The cerebellar pontine angles ar e unremarkable. No enhancing lesions are seen. Visualized portion of the facial nerves appear within normal limits. OTHER FINDINGS: None. IMPRESSION: Unremarkable MRI of the brain and internal auditory canals. DATA REPOSITORY:
[2022-10-12] MEDS: Normal Saline Flush 10 ML SYR IVP (08:10)
[2022-10-12] MEDS: Gadoterate meglumine 20 ML VIAL IVP (08:10)
== END 2022-10-12 01:55 ==
LOC: DI 01:35
PROVIDERS: PCP Nurse Practitioner Family; Visit Provider Internal Medicine
DX: H93.11 Tinnitus, right ear (principal)
CPT/HCPCS: 70553

== ENCOUNTER 2022-11-10 02:12 | Outpatient (CLI) | payer BC, SELFPAY ==
--- NOTE | 2022-11-10 | DI.MAMMO_ITS ---
Exam(s) MAMMO SCREENING EXAM: MAMMO SCREENING CLINICAL HISTORY: SCREENING FOR BREAST CANCER Z12.39 TECHNIQUE: Mammograms were interpreted according to the usual protocol including computer analysis w Connectivity CAD system, tomosynthesis and C-view imaging. COMPARISON: 2020 FINDINGS: The breasts are composed of scattered fibroglandular densities, Breast Density category B. No suspicious masses or suspicious microcalcifications are seen. No skin thickening or abnormal axillary lymph nodes are seen. There has been no significant change from the prior exam. IMPRESSION: BI-RADS Category 1, Negative mammogram Yearly screening mammography is recommended. Breast Density - Category B, scattered fibroglandular densities. A negative radiographic report should not delay biopsy if a dominant or clinically suspicious mass is present. Up to ten percent of cancers are not identified on mammography. A negative report may reinforce clinical impression. Adenosis and dense breasts may obscure an underlying neoplasm. False positive reports average 6 to 10%. Patient will receive a letter notifying them of these results.
== END 2022-11-10 02:32 ==
LOC: DI 02:12
PROVIDERS: PCP Nurse Practitioner Family; Visit Provider Internal Medicine
DX: Z12.31 Encounter for screening mammogram for malignant neoplasm of breast (principal)
CPT/HCPCS: 77063; 77067

== ENCOUNTER 2022-11-28 09:45 | Emergency (ER) | payer BC, SELFPAY ==
[2022-11-28 09:54] VITALS: BP 123/76; PULSE 97; RESP 18; TEMP 36.9; O2SAT 100
--- NOTE | 2022-11-28 10:02 | W.ED.GENAD ---
Discharge Plan Disposition Patient Disposition: Home Condition: Improving Discharge Details Clinical Impression: Acute left otitis media Primary Care Provider: Maribeth Mckeon ED Provider: Caden Phillips Home Meds and New Rx's Prescriptions: New amoxicillin-pot clavulanate 875-125 mg tablet 1 tab PO BID 10 Days Qty: 20 0RF Continued cyanocobalamin (vitamin B-12) [Vitamin B-12] 500 mcg tablet 500 mcg PO DAILY Digestive Advantage Probio-Pre 400 million cell tablet,chewable PO ascorbate calcium (vitamin C) 500 mg tablet 500 mg PO DAILY Glucosa Immune Booster Capsule PO Label Comments: 06/23/22- Pt takes immune booster OTC, unsure of brand. Gardasil 9 (PF) 0.5 mL syringe 0.5 ml IM ONCE Qty: 1 2RF Rx Instructions: as a single dose, repeat inj in 1mo and 5mo from initial injection meclizine 25 mg tablet 25 mg PO BID PRNQty: 10 0RF Discharge Instructions Instructions: Ear Infection (ED) Additional Instructions: Claritin once daily during the daytime for decongestion with Benadryl 25 to 50 mg at bedtime. Take antibiotics as prescribed. I recommend you take an tzdr-vwe-ozjnrsb probiotic once daily in the middle of the day while on this medication. Tylenol and/or ibuprofen as needed for pain. Continue your routine medications. Return to the ER for any acute concern. Medical Decision Making 42-year-old female presents from home with left ear pain that developed overnight following 5 or 6 days of upper respiratory illness. She has evidence of acute otitis media on exam. Patient is taking an airplane flight tomorrow. We discussed initiation of decongestion and I will place her on a course of antibiotics. She is stable and appropriate for discharge and outpatient management at this time. HPI General Mode of arrival: ambulatory. Date/Time Provider Initiated Documentation: 11/28/22 09:49. Limitations to Documentation: no limitations. Information obtained by: patient. History of Present Illness 42 year old F presents to the emergency department with the chief complaint of 6 days of upper respiratory illness, now left ear pain, described as moderate, Quality is described as dull and constant, and is localized to the head and left. Patient reports no radiation. Patient started experiencing this hour(s) and it has been constant. No relieving factors improve symptom(s), No exacerbating factors reported . Patient notes cough; denies chest pain, fever/chills and shortness of breath. Patient did receive the following treatments prior to arrival, none Related Data Home Medications Medication Instructions Recorded Confirmed Bacillus coagulans 400 million cell PO 11/19/20 07/02/22 cell chewable tablet (Digestive Advantage Probiotics-Prebiotic) ascorbate calcium (vitamin C) 500 500 mg PO DAILY 11/19/20 11/28/22 mg tablet cyanocobalamin (vitamin B-12) 500 500 mcg PO DAILY 11/19/20 11/28/22 mcg tablet (Vitamin B-12) herbal complex no.306 (Glucosa cap PO 06/24/22 07/02/22 Immune Booster capsule) human papillomav vac,9-suhail(PF) 0.5 0.5 ml IM ONCE #1 mL 07/02/22 07/02/22 mL intramuscular syringe (Gardasil 9 (PF)) meclizine 25 mg tablet 25 mg PO BID PRN #10 tabs 09/04/22 11/28/22 amoxicillin 875 mg-potassium 1 tab PO BID 10 days #20 tabs 11/28/22 clavulanate 125 mg tablet Previous Rx's Medication Instructions Recorded human papillomav vac,9-suhail(PF) 0.5 0.5 ml IM ONCE #1 mL 07/02/22 mL intramuscular syringe (Gardasil 9 (PF)) meclizine 25 mg tablet 25 mg PO BID PRN #10 tabs 09/04/22 amoxicillin 875 mg-potassium 1 tab PO BID 10 days #20 tabs 11/28/22 clavulanate 125 mg tablet Allergies Allergy/AdvReac Type Severity Reaction Status Date / Time acetaminophen [From Vicodin] Allergy Severe Verified 11/28/22 09:56 codeine Allergy Severe Verified 11/28/22 09:56 hydrocodone [From Vicodin] Allergy Severe Verified 11/28/22 09:56 pseudoephedrine Allergy Severe Verified 11/28/22 09:56 pain killers Allergy Intermediate Uncoded 11/28/22 09:56 General Stated Complaint: EarProblem MIRACLE: 4 Review of Systems Narrative: Recent URI with dry cough, runny nose, sinus pain and pressure, no left ear pain. 7 systems were reviewed and otherwise negative PFSH All Active Problems (Updated 11/28/22 @ 10:04 by Caden Phillips MD) Acute left otitis media (Acute) Abnormal cervical Papanicolaou smear (Acute) 03/2022. Pap: ASCUS cannot r/o HGSIL. Lab test negative for COVID-19 virus (Acute) Fever (Acute) Right carpal tunnel syndrome (Acute) Abnormal auditory perception of both ears (Acute) Pulsatile tinnitus, right ear (Acute) Family history of ischemic heart disease (Acute) Tobacco use (Acute) Chest pain (Acute) QUYEN II (cervical intraepithelial neoplasia II) (Acute) 2020. On Pap. LEEPCIN2. clear margins. HSIL (high grade squamous intraepithelial lesion) on Pap smear of cervix (Acute) Medical History Abnormal breast finding Atypical chest pain Depression Dyspepsia History of abnormal cervical Pap smear Hypomania Delia Marijuana use Nicotine dependence Obesity Palpitations Paresthesia of both hands Skin lesion Social History Smoking/Tobacco Use Status: Former Tobacco Use Quit Date: 12/01/20 Second Hand Exposure: No Counseling given: counseling >3 minutes Smoking risk assessment performed?: Yes Alcohol Intake: never Drug use: Daily Substance use type: marijuana Household members: spouse and children Housing: house Number of Children: 1 Pets and animals: Yes Pets and animals: cat(s) and dog(s) Current gender identity: decline to answer What is your relationship status?: Panel score (0-1 are the most socially isolated patients): 1 What type of physical activity do you participate in: walking and additional Seatbelt use: always Do you feel safe at home: Yes Do you feel safe in your relationship?: Yes Additional Social history: Moved from [place] 2 years ago with and biological daughter who is 24 and an artist. She has two step-children who still live in [place]. History History 1 Para 1 Hx # Term Pregnancies Multiple births Hx # Pregnancies Ectopic pregnancies AB induced Hx Number of Living Children 1 AB spontaneous Exam Narrative Exam Narrative: GEN: awake, alert, oriented 3. Pleasant, well groomed, interactive. HEAD: Normocephalic, atraumatic ENT: Mucous membranes moist, oropharynx unremarkable, right tympanic membrane slightly erythematous, the left tympanic membrane is distended, erythematous with loss of light reflex, external ear exam unremarkable EYES: PERRL, EOMI NECK: Full ROM, no JOCELYN, no menigismus CHEST/RESP: Nontender, clear to auscultation bilateral, no wheeze/rhonchi/rales CARDIOVASCULAR: RRR, no murmur, rub romero. 2+ Rad pulse bilateral EXT: Full ROM, no edema, no rash Neuro: Grossly normal neurologic exam, conversant, interactive. Psych: Speech fluent, thoughts congruent, affect normal Course Vital Signs Vital signs: Vital Signs Temperature 36.9 C 11/28/22 09:54 Pulse 97 H 11/28/22 09:54 Respiratory Rate 18 11/28/22 09:54 Blood Pressure 123/76 11/28/22 09:54 Pulse Oximetry 100 11/28/22 09:54 Temperature 36.9 C 11/28/22 09:54 Temperature Source Skin 11/28/22 09:54 Pulse 97 H 11/28/22 09:54 Respiratory Rate 18 11/28/22 09:54 Respiratory Effort 11/28/22 09:56 Blood Pressure 123/76 11/28/22 09:54 Blood Pressure Position Sitting 11/28/22 09:54 Pulse Oximetry 100 11/28/22 09:54 Oxygen Delivery Method Room Air 11/28/22 09:54 Oxygen Flow Rate 0 11/28/22 09:54 Pain Level 6 11/28/22 09:54
== END 2022-11-28 10:12 | disposition home or self-care (01) ==
PROVIDERS: Emergency Provider Emergency Medicine; PCP Nurse Practitioner Family
DX: H66.92 Otitis media, unspecified, left ear (principal)
CPT/HCPCS: 99283

== ENCOUNTER 2023-05-02 13:42 | Emergency (ER) | payer BC, SELFPAY ==
[2023-05-02] VITALS (8 sets, daily range): BP systolic 103–137; BP diastolic 72–84; PULSE 66–78; RESP 14–26; TEMP 36.9; O2SAT 97–100
--- NOTE | 2023-05-02 13:30 | RT.EKG_ITS ---
APPROVED REPORT Exam: Resting ECG Reason for Exam: CP BESSY Patient Location: E HR:83 bpm ECG Measurements Heart Rate 83 AXIS IL 147 P 45 QRSd 85 QRS 8 QT 379 T -6 QTc 444 Conclusion Sinus rhythm...normal P axis, V-rate 60- 99
--- NOTE | 2023-05-02 14:00 | DI.RAD_ITS ---
Exam(s) XR CHEST 2V PA LATERAL EXAM: XR CHEST 2V PA LATERAL CLINICAL HISTORY: CP, dizziness TECHNIQUE: 2D digital imaging was performed. COMPARISON: CR,XR XR CHEST 2V PA LATERAL from 09/04/2022 FINDINGS: HEART: Normal size. Aorta: Not dilated. PULMONARY VASCULATURE: Normal. LUNGS: Clear. PLEURAL SPACE: No pleural effusion or pneumothorax. BONE:Unremarkable for age. IMPRESSION: No acute abnormality. DATA REPOSITORY: RADIATION DOSE DELIVERED:
--- NOTE | 2023-05-02 14:00 | DI.CT_ITS ---
Exam(s) CT BRAIN NECK CTA EXAM: CT BRAIN NECK CTA CLINICAL HISTORY: right sided neck pain, right sided DE LEON, paresthesia. TECHNIQUE: Imaging Protocol: Axial CT angiography was performed with multi-slice acquisition and mu lti-planar and 3D reconstructions. CONTRAST MATERIAL: Intravenous: Omnipaque 350 Contrast volume:85 cc COMPARISON: CT CT BRAIN NECK CTA from 09/04/2022 FINDINGS: CT Head W/O and W contrast: Ventricles and Extra axial spaces: Normal in size and morphology for the patient's age. Hemorrhage: None. Cerebral parenchyma: Normal. Midline shift: None. Brainstem/Cerebellum: Normal. Calvarium: Normal. Visualized Paranasal sinuses/Mastoids: Clear. Soft Tissues: Unremarkable. Enhancement: Normal. CTA Brain W: Internal Carotid Arteries: Petrous: Normal. Cavernous: Normal. Cerebral: Normal. Middle Cerebral Arteries: Right: No aneurysm, occlusion or significant stenosis. Left: No aneurysm, occlusion or significant stenosis. 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 Distal to this there is no aneurysm, occlusion or significant stenosis. Left: No aneurysm, occlusion or significant stenosis. Posterior cerebral Arteries: Right: No aneurysm, occlusion or significant stenosis. Left: No aneurysm, occlusion or significant stenosis. Vertebral Arteries: Right: No aneurysm, occlusion or significant stenosis. Left: No aneurysm, occlusion or significant stenosis. Basilar Artery: No aneurysm, occlusion or significant stenosis. CTA Neck W: Common Carotid: Right: No dissection, occlusion or significant stenosis. Left: No dissection, occlusion or significant stenosis. External Carotid: Right: No dissection, occlusion or significant stenosis. Left: No dissection, occlusion or significant stenosis. Internal Carotid: Right: No dissection, occlusion or significant stenosis. Left: No dissection, occlusion or significant stenosis. Vertebral Artery: Right: No dissection, occlusion or significant stenosis. Left: No dissection, occlusion or significant stenosis. Lung Apices: Normal. Bones: No acute abnormality. Soft Tissues: Normal. IMPRESSION: 1. CTA brain: No change in presumably diminutive versus developmentally absent right A1 segment. 2. Unremarkable CT Head. 3. Normal CTA examination of the neck. RADIATION DOSE DELIVERED: 2,311.12mGy.cm Total DLP DATA REPOSITORY: All CT scans at this facility are submitted to the National Radiology Data Registry (NRDR) Dose Index Registry (DIR) with the [employer] (A[employer]). RADIATION OPTIMIZATION: All CT scans at this facility use at least one of these dose optimization te chniques: automated exposure control; mA and/or kV adjustment per patient size (includes targeted exa ms where dose is matched to clinical indication); or iterative reconstruction.
[2023-05-02 14:04] LABS: HCT 41.3 % (36.0-46.0); HGB 14.1 g/dL (11.2-15.7); MCH 30.2 pg (27.0-33.0); MCHC 34.1 % (32.0-36.0); MCV 88 fL (80-95); MPV 9.2 fL (8.0-11.0); Platelet Count 276 10^3/uL (130-400); RBC 4.67 10^6/uL (3.93-5.22); RDW 12.7 % (11.7-14.6); RDW-SD 41.3 fL
--- NOTE | 2023-05-02 14:20 | ED.GENADUL_ITS ---
Discharge Plan Disposition Patient Disposition: Home Condition: Good Discharge Details Clinical Impression: Chest pain, Dizziness, Neck pain Primary Care Provider: Maribeth Mckeon ED Provider: Sarahi Cannon Home Meds and New Rx's Prescriptions: Continued cyanocobalamin (vitamin B-12) [Vitamin B-12] 500 mcg tablet 500 mcg PO DAILY Digestive Advantage Probio-Pre 400 million cell tablet,chewable PO ascorbate calcium (vitamin C) 500 mg tablet 500 mg PO DAILY Glucosa Immune Booster Capsule PO Patient Comments: 06/23/22- Pt takes immune booster OTC, unsure of brand. Gardasil 9 (PF) 0.5 mL syringe 0.5 ml IM ONCE Qty: 1 2RF Rx Instructions: as a single dose, repeat inj in 1mo and 5mo from initial injection meclizine 25 mg tablet 25 mg PO BID PRNQty: 10 0RF Discharge Instructions Instructions: Chest Pain (ED), Neck Pain (ED) Additional Instructions: Your labs and imaging are reassuring here today. I am concerned that you have some muscle spasm in your neck which may be contributing to your pain. I have referred you to physical therapy, referral is attached. Please call to schedule appointment. I am also worried that some of this may be associated with stress. I do encourage you to continue cutting back on your smoking. Please call your primary care provider to schedule follow-up appointment. If you develop fever/chills, increased pain or other new/worsening symptom please seek care urgently once again. As we discussed, if your urine comes back concerning for infection, we will call you we will hold off on antibiotics as you are not currently having symptoms. Please keep journals of your symptoms as discussed. Stand Alone Forms: Physical Therapy Referral Referrals: Maribeth Mckeon [Primary Care Provider] - Medical Decision Making Patient is a pleasant 42-year-old female with past medical history significant for atypical chest pain, hypomania, carly, marijuana use, nicotine dependence and, obesity, paresthesias of both hands, brought in by with chief complaint of progressively worsening right-sided neck pain, right-sided arm paresthesias, intermittent chest pain, intermittent shortness of breath, intermittent dizziness. She reports the bulk of the symptoms have been ongoing for years including the chest pain and dizziness. However, the pain in the neck began in January and has been progressively worsening. She indicates the anterior right side of the neck along the sternocleidomastoid and then extending posteriorly towards the trapezius is area of maximal discomfort. She denies any trauma. States that she felt like initially she slept wrong. However, symptoms have continued to persist. Chest pain is intermittent not necessarily exertionally based, not currently having chest pain. Shortness of breath is also intermittent but again, not exertionally based or associated with any significant triggers. Chest pain shortness of breath did not correlate. Right- sided arm paresthesias which are also intermittent. She feels that these have been worsening as the pain in the right neck has been worsening. No fevers or chills. No pleuritic pain. No GI upset. The dizziness that she experiences is more of a lightheadedness that she states is quite mild. Currently menstruating. Recently had bilateral TM ruptures which have healed per patient, has f/u with ENT. On exam, patient is resting in no acute distress, appears nontoxic. Hemodynamically stable. Lungs are clear, normal cardiac exam. Neurologic exam is intact. No lower extremity edema. Intact distal pulses. Lower back has large darkened area of patchy discoloration which patient reports is chronic and associates with long-term use of heating pad. Differential is quite broad at this time. She has a multitude of complaints. The neck pain as well as neurologic concerns does have any considering a pote ntial cervical artery dissection although timewise I would expect that she would have presented earlier. I also discussed chills, fatigue and she does not feel that stress is likely contributing to this. She is not having exertional symptoms and I have very low suspicion for ACS although we will obtain troponin out of abundance of caution. Patient had recent travel, no pleuritic pain no history of DVT, calf pain. Do not see indication at this time for PE. Patient does feel tight on the trapezius and also consider potential muscle spasm. ECG reviewed by Dr. Olea without acute ischemic findings noted. Labs reviewed, no sigfnicant abnormality. She did have + leukocyte esterase but has been asymptomatic. Will hold off on dx of UTI or treatment, wait for the culture. HEART: Normal size.? Aorta: Not dilated. PULMONARY VASCULATURE: Normal. LUNGS: Clear. ? PLEURAL SPACE: No pleural effusion or pneumothorax. BONE:Unremarkable for age.? Ventricles and Extra axial spaces: Normal in size and morphology for the patient's age. Hemorrhage: None. Cerebral parenchyma: Normal. Midline shift: None. Brainstem/Cerebellum: Normal. Calvarium: Normal. Visualized Paranasal sinuses/Mastoids: Clear. Soft Tissues: Unremarkable. Enhancement: Normal. CTA Brain W: Internal Carotid Arteries: Petrous: Normal. Cavernous: Normal. Cerebral: Normal. Middle Cerebral Arteries: Right:? No aneurysm, occlusion or significant stenosis. Left:? No aneurysm, occlusion or significant stenosis. 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 Distal to this there is no aneurysm, occlusion or significant stenosis. Left:? No aneurysm, occlusion or significant stenosis. Posterior cerebral Arteries: Right:? No aneurysm, occlusion or significant stenosis. Left:? No aneurysm, occlusion or significant stenosis. Vertebral Arteries: Right:? No aneurysm, occlusion or significant stenosis. Left:? No aneurysm, occlusion or significant stenosis. Basilar Artery:? No aneurysm, occlusion or significant stenosis. CTA Neck W: Common Carotid: Right: No dissection, occlusion or significant stenosis. Left: No dissection, occlusion or significant stenosis. External Carotid: Right:? No dissection, occlusion or significant stenosis. Left:? No dissection, occlusion or significant stenosis. Internal Carotid: Right:? No dissection, occlusion or significant stenosis. Left:? No dissection, occlusion or significant stenosis. Vertebral Artery: Right:? No dissection, occlusion or significant stenosis. Left:? No dissection, occlusion or significant stenosis. Lung Apices: Normal. Bones: No acute abnormality. Soft Tissues: Normal. IMPRESSION: 1. CTA brain: No change in presumably diminutive versus developmentally absent right A1 segment.? 2. Unremarkable CT Head. 3. Normal CTA examination of the neck.? Discussed with patient. No acute abnormality identified. She is working on smoking cessation which I encouraged she continue with. Encouraged close f/u with PCP- she has not yet discussed these chronic issues with her PCP. She was encouraged to do so, will call to schedule f/u in the next 1-2 weeks. Encouraged hydration. Will refer to PT for muscle spasm and neck pain. Discussed treatment options, including topical options. All of her questions and concerns were addressed, she is in agreement with this plan. HPI General Date/Time Provider Initiated Documentation: 05/02/23 13:43 . Limitations to Documentation: no limitations . Information obtained by: patient, RN notes reviewed and old records reviewed . History of Present Illness 42 year old F presents to the emergency department with the chief complaint of right sided neck pain, non-exertional chest pain, intermittent paresthesias, described as moderate, Quality is described as aching (right side of neck), and is localized to the neck. Patient reports no radiation. Patient started experiencing this month(s) and it has been intermittent. No relieving factors improve symptom(s), No exacerbating factors reported . Patient notes chest pain (intermittent, none currently); denies confusion, cough, diaphoresis, fever/chills, headaches, loss of appetite, nausea/vomiting, rash and shortness of breath. Patient did receive the following treatments prior to arrival, none Related Data Home Medications Medication Instructions Recorded Confirmed Bacillus coagulans 400 million cell PO 11/19/20 07/02/22 cell chewable tablet (Digestive Advantage Probiotics-Prebiotic) ascorbate calcium (vitamin C) 500 500 mg PO DAILY 11/19/20 05/02/23 mg tablet cyanocobalamin (vitamin B-12) 500 500 mcg PO DAILY 11/19/20 05/02/23 mcg tablet (Vitamin B-12) herbal complex no.306 (Glucosa cap PO 06/24/22 07/02/22 Immune Booster capsule) human papillomav vac,9-suhail(PF) 0.5 0.5 ml IM ONCE #1 mL 07/02/22 07/02/22 mL intramuscular syringe (Gardasil 9 (PF)) meclizine 25 mg tablet 25 mg PO BID PRN #10 tabs 09/04/22 11/28/22 Previous Rx's Medication Instructions Recorded human papillomav vac,9-suhail(PF) 0.5 0.5 ml IM ONCE #1 mL 07/02/22 mL intramuscular syringe (Gardasil 9 (PF)) meclizine 25 mg tablet 25 mg PO BID PRN #10 tabs 09/04/22 Allergies Allergy/AdvReac Type Severity Reaction Status Date / Time acetaminophen [From Vicodin] Allergy Severe Verified 05/02/23 13:50 codeine Allergy Severe Verified 05/02/23 13:50 hydrocodone [From Vicodin] Allergy Severe Verified 05/02/23 13:50 pseudoephedrine Allergy Severe Verified 05/02/23 13:50 pain killers Allergy Intermediate Uncoded 05/02/23 13:50 General Stated Complaint: CVA/TIA MIRACLE: 3 Review of Systems Constitutional Constitutional: Reports as per HPI, Denies chills, Denies fever(s), Denies headache(s) and Denies weakness ENT Ears, Nose, Mouth, and Throat: Reports dizziness (feels lightheaded intermittently, unclear what brings on, reported mild) and Denies headache(s) Cardiovascular Cardiovascular: Reports as per HPI, Reports chest pain (intermittent, no exertional component), Denies chest pain with activity, Denies diaphoresis, Denies syncope, Denies radiating jaw, neck or arm pain and Denies dyspnea Respiratory Respiratory: Reports as per HPI, Denies cough, Denies pain on inspiration and Denies dyspnea Gastrointestinal Gastrointestinal: Reports as per HPI, Denies abdominal pain, Denies change in bowel habits, Denies nausea and Denies vomiting Musculoskeletal Musculoskeletal: Reports as per HPI Integumentary/Breasts Skin/Breast: Reports as per HPI, Denies rash and Denies wounds Neurologic Neurologic: Reports as per HPI, Reports dizziness (feels lightheaded intermittently, unclear what brings on, reported mild), Denies syncope, Denies headache(s), Denies radicular pain, Reports paresthesias (reports tingling into right hand) and Denies weakness PFSH All Active Problems (Updated 05/02/23 @ 16:03 by NESSA Monten[place]ro) Dizziness (Acute) Neck pain (Acute) Abnormal cervical Papanicolaou smear (Acute) 03/2022. Pap: ASCUS cannot r/o HGSIL. Lab test negative for COVID-19 virus (Acute) Fever (Acute) Right carpal tunnel syndrome (Acute) Abnormal auditory perception of both ears (Acute) Pulsatile tinnitus, right ear (Acute) Family history of ischemic heart disease (Acute) Tobacco use (Acute) Chest pain (Acute) QUYEN II (cervical intraepithelial neoplasia II) (Acute) 2020. On Pap. LEEPCIN2. clear margins. HSIL (high grade squamous intraepithelial lesion) on Pap smear of cervix (Acute) Medical History Abnormal breast finding Atypical chest pain Depression Dyspepsia History of abnormal cervical Pap smear Hypomania Carly Marijuana use Nicotine dependence Obesity Palpitations Paresthesia of both hands Skin lesion Social History Smoking/Tobacco Use Status: Former Tobacco Use Quit Date: 12/01/20 Second Hand Exposure: No Counseling given: counseling >3 minutes Smoking risk assessment performed?: Yes Alcohol Intake: never Drug use: Daily Substance use type: marijuana Household members: spouse and children Housing: house Number of Children: 1 Pets and animals: Yes Pets and animals: cat(s) and dog(s) Current gender identity: decline to answer What is your relationship status?: Panel score (0-1 are the most socially isolated patients): 1 What type of physical activity do you participate in: walking and additional Seatbelt use: always Do you feel safe at home: Yes Do you feel safe in your relationship?: Yes Additional Social history: Moved from [place] 2 years ago with and biological daughter who is 24 and an artist. She has two step-children who still live in [place]. History History 1 Para 1 Hx # Term Pregnancies Multiple births Hx # Pregnancies Ectopic pregnancies AB induced Hx Number of Living Children 1 AB spontaneous Exam Const General: cooperative, healthy appearing, comfortable, no acute distress, well developed and well groomed Nutritional Appearance: well nourished and overweight Orientation: alert and awake HENMT Head: normal to inspection Face and sinus: normal facial exam Mouth: oral mucosae normal and lip normal Throat: posterior oropharynx normal, tonsils normal and uvula midline Neck Neck: normal visual inspection, full ROM, no lymphadenopathy, trachea midline, supple, no anterior neck swelling and no tracheal deviation Thyroid: thyroid normal Resp Effort & Inspection: normal respiratory effort, able to speak in complete sentences and no respiratory distress Cardio Rate: regular rate Rhythm: regular rhythm Heart Sounds: S1 normal and S2 normal Back/Spine/Pelvis Cervical Spine: normal cervical lordosis, cervical ROM normal, No Lhermitte's sign positive, cervical spasm (right side along trapezius), No cervical spinal tenderness, No step off deformity and other (negative Spurling's test) Thoracic/Lumbar Spine: thoracic and lumbar spine normal to inspection Skin General skin exam: other (dark discoloration to lower back, appears patchy) Neuro General: patient alert and patient awake Cognition: normal cognition Speech: speech normal Gait: normal gait Motor: muscle tone normal throughout Sensory Exam: no sensory deficits noted Extrem General: capillary refill normal, no pedal edema, no calf tenderness and other (intact distal pulses) Psych Appearance: grossly normal and well kempt Mental Status: mental status grossly normal Speech and Movement: speech and movement normal Course Vital Signs Vital signs: Vital Signs Temperature 36.9 C 05/02/23 13:45 Pulse 74 05/02/23 13:45 Respiratory Rate 16 05/02/23 13:45 Blood Pressure 137/84 05/02/23 13:45 Pulse Oximetry 100 05/02/23 13:45 Temperature 36.9 C 05/02/23 13:45 Temperature Source Temporal Artery Scan 05/02/23 13:45 Pulse 74 05/02/23 13:45 Respiratory Rate 16 05/02/23 13:45 Respiratory Effort Normal, Non-Labored 05/02/23 14:08 Blood Pressure 137/84 05/02/23 13:45 Blood Pressure Position Sitting 05/02/23 13:45 Pulse Oximetry 100 05/02/23 13:45 Oxygen Delivery Method Room Air 05/02/23 13:45 Oxygen Flow Rate 0 05/02/23 13:45 Pain Level 4 05/02/23 13:45 Lab/Test Results Lab/Test Results: Laboratory Tests Range/Units 05/02/23 13:55 WBC (4.4-10.8) 10^3/uL 6.60 RBC (3.93-5.22) 10^6/uL 4.67 Hgb (11.2-15.7) g/dL 14.1 Hct (36.0-46.0) % 41.3 MCV (80-95) fL 88 MCH (27.0-33.0) pg 30.2 MCHC (32.0-36.0) % 34.1 RDW (11.7-14.6) % 12.7 Plt Count (130-400) 10^3/uL 276 MPV (8.0-11.0) fL 9.2
[2023-05-02 14:25] LABS: ALT 21 U/L (14-59); AST 17 U/L (15-37); Albumin 4.2 g/dL (3.4-5.0); Alkaline Phosphatase 79 U/L (46-116); BUN 17 mg/dL (7-18); Bilirubin, Total 0.4 mg/dL (0.2-1.0); CREATININE 0.7 mg/dL (0.55-1.02); Calcium 9.1 mg/dL (8.5-10.1); Chloride 104 mmol/L (98-107); Glucose 94 mg/dL (74-106); Potassium 3.8 mmol/L (3.5-5.1); Sodium 139 mmol/L (136-145); Total Protein 7.8 g/dL (6.4-8.2)
[2023-05-02 14:31] LABS: Abs Immature Grans 0.03 10^3/uL (0.0-0.06); Absolute Basophil Count 0.03 10^3/uL (0.0-0.2); Absolute Lymphocyte Count 2.24 10^3/uL (1.2-3.4); Absolute Monocyte Count 0.65 10^3/uL (0.1-0.8); Absolute Neutrophil Count 5.39 10^3/uL (1.2-6.7); Basophils % 0.4; Eosinophils % 1.2; HCT 41.9 % (36.0-46.0); HGB 14.3 g/dL (11.2-15.7); Immature Grans % 0.4; Lymphocytes % 26.5; MCH 30.2 pg (27.0-33.0); MCHC 34.1 % (32.0-36.0); MCV 88 fL (80-95); MPV 10.6 fL (8.0-11.0); Monocytes % 7.7; Neutrophils % 63.8; Platelet Count 209 10^3/uL (130-400); RBC 4.74 10^6/uL (3.93-5.22); RDW 12.6 % (11.7-14.6); RDW-SD 41.6 fL; WBC 8.44 10^3/uL (4.4-10.8)
[2023-05-02 14:51] LABS: Magnesium 2.1 mg/dL (1.8-2.4); TSH (W/Ref FT4) 4.02 uIU/mL (0.36-3.74); Troponin I < 50 ng/L (<or=60)
[2023-05-02 15:11] LABS: FREE T4 0.98 ng/dL (0.76-1.46)
[2023-05-02] MEDS: Omnipaque 350 MG/ML 500 ML BTL-Imaging package IJ (15:20)
[2023-05-02 15:27] LABS: Bilirubin Negative (Negative); Blood Negative (Negative); Clarity Clear (Clear); Glucose Negative (Negative); Ketones Trace mg/dL (Negative); Leukocyte Esterase Trace (Negative); Nitrite Negative (Negative); Urobilinogen 0.2 mg/dL (Up to 0.2)
[2023-05-02] MEDS: Lactated Ringers 1,000 ML 1000 ML IV (15:27)
[2023-05-02 15:47] LABS: Bacteria Rare HPF (Negative); C & S Indicated? Yes; Casts Negative LPF (Negative); Crystals Negative HPF (Negative); Epithelial Cells Few HPF (Negative); Mucus Trace (Negative); RBC 0-2 HPF (0-2); WBC 0-2 HPF (0-5)
--- NOTE | 2023-05-04 08:35 | NUR.NOTE ---
Nursing Note: in chart to check for antibiotics
== END 2023-05-02 16:17 | disposition home or self-care (01) ==
PROVIDERS: Emergency Provider Physician Assistant; PCP Nurse Practitioner Family
DX: R07.9 Chest pain, unspecified (principal); R06.02 Shortness of breath; R42 Dizziness and giddiness
CPT/HCPCS: 36415; 70496; 70498; 80053; 85027; 93005; 96360; 99285; 71046; 81003; 81015; 83735; 84439; 84443; 84484; 85025; 87086; 93010; 99284

== ENCOUNTER 2023-09-02 14:50 | Outpatient (REF) | payer BC, SELFPAY ==
--- NOTE | 2023-09-02 14:25 | PAPFT_PTH ---
PATIENT: Jen Luke LOC: [facility] U#:[id number] AGE/SX: 43/F ROOM: RE09/02/[address]: Keisha Holly : 1980 BED: DIS: 09/02/2023 SPEC #: [id number] RECD: 09/02/23 17:10 STATUS: BUNNY REWellington #: [id number] LEO: 09/02/23 14:[address]: Keisha Holly DEPT: [facility] Cytology RECD BY: Luann Perez ENTERED: 09/02/23 17:10 SP TYPE: PAPFT OTHR DR: Maribeth Mckeon Tissues: 1 - CX/ENDOCX FOR PAP SMEARS Procedures: PAP THIN PREP/UVM Screening HPV DNA PROBE Comments: [id number]
== END 2023-09-02 14:51 | disposition home or self-care (01) ==
LOC: LBN 14:50
PROVIDERS: PCP Nurse Practitioner Family; Visit Provider Obstetrics & Gynecology Gynecology
DX: Z12.4 Encounter for screening for malignant neoplasm of cervix (principal)
CPT/HCPCS: 88142; 87624

== ENCOUNTER 2024-02-09 20:42 | Outpatient (REF) | payer BC, SELFPAY ==
[2024-02-09 20:59] LABS: Abs Immature Grans 0.04 10^3/uL (0.0-0.06); Absolute Basophil Count 0.04 10^3/uL (0.0-0.2); Absolute Eosinophil Count 0.06 10^3/uL (0.0-0.7); Absolute Lymphocyte Count 2.81 10^3/uL (1.2-3.4); Absolute Monocyte Count 0.57 10^3/uL (0.1-0.8); Absolute Neutrophil Count 4.71 10^3/uL (1.2-6.7); Basophils % 0.5; Eosinophils % 0.7; HCT 44.6 % (36.0-46.0); HGB 14.7 g/dL (11.2-15.7); Immature Grans % 0.5; Lymphocytes % 34.1; MCH 30.8 pg (27.0-33.0); MCV 93 fL (80-95); MPV 9.2 fL (8.0-11.0); Monocytes % 6.9; Neutrophils % 57.3; Platelet Count 304 10^3/uL (130-400); RBC 4.78 10^6/uL (3.93-5.22); RDW 12.8 % (11.7-14.6); RDW-SD 44.2 fL; WBC 8.23 10^3/uL (4.4-10.8)
[2024-02-09 21:18] LABS: ALT 23 U/L (14-59); AST 19 U/L (15-37); Albumin 3.9 g/dL (3.4-5.0); Alkaline Phosphatase 81 U/L (46-116); Anion Gap 9.3 mmol/L (3-11); BUN 14 mg/dL (7-18); Bilirubin, Total 0.5 mg/dL (0.2-1.0); CO2 28.7 mmol/L (21.0-32.0); CREATININE 0.9 mg/dL (0.55-1.02); Calcium 9.4 mg/dL (8.5-10.1); Chloride 103 mmol/L (98-107); Estimated GFR 80.34 (mL/min/1.73m2); Glucose 86 mg/dL (74-106); Lipase 37 U/L (16-77); Potassium 4.2 mmol/L (3.5-5.1); Sodium 141 mmol/L (136-145); Total Protein 7.5 g/dL (6.4-8.2)
[2024-02-09 21:41] LABS: COVID-19 PCR Negative (Negative); Influenza A PCR Negative (Negative); Influenza B PCR Negative (Negative); RSV PCR Negative (Negative)
[2024-02-09 22:05] LABS: Source Nasopharynx
== END 2024-02-09 20:43 | disposition home or self-care (01) ==
LOC: LBN 20:42
PROVIDERS: PCP Nurse Practitioner Family; Visit Provider Physician Assistant Medical
DX: R19.7 Diarrhea, unspecified (principal); R11.2 Nausea with vomiting, unspecified
CPT/HCPCS: 80053; 83690; 87637; 85025

== ENCOUNTER 2024-03-01 18:56 | Outpatient (REF) | payer BC, SELFPAY ==
[2024-03-01 20:58] LABS: HCT 43.6 % (36.0-46.0); HGB 14.5 g/dL (11.2-15.7); MCH 30.9 pg (27.0-33.0); MCHC 33.3 % (32.0-36.0); MCV 93 fL (80-95); MPV 9.5 fL (8.0-11.0); Platelet Count 290 10^3/uL (130-400); RBC 4.69 10^6/uL (3.93-5.22); RDW 12.6 % (11.7-14.6); RDW-SD 43.1 fL; WBC 8.97 10^3/uL (4.4-10.8)
[2024-03-01 21:21] LABS: ALT 24 U/L (14-59); AST 16 U/L (15-37); Albumin 4.1 g/dL (3.4-5.0); Alkaline Phosphatase 82 U/L (46-116); Anion Gap 10.2 mmol/L (3-11); BUN 23 mg/dL (7-18); Bilirubin, Total 0.3 mg/dL (0.2-1.0); CO2 27.8 mmol/L (21.0-32.0); CREATININE 0.9 mg/dL (0.55-1.02); Calcium 9.1 mg/dL (8.5-10.1); Chloride 103 mmol/L (98-107); Estimated GFR 80.34 (mL/min/1.73m2); Glucose 88 mg/dL (74-106); Potassium 4.2 mmol/L (3.5-5.1); Sodium 141 mmol/L (136-145); TSH (W/Ref FT4) 1.63 uIU/mL (0.36-3.74); Total Protein 7.4 g/dL (6.4-8.2)
[2024-03-01 21:34] LABS: Vitamin D 25 Total 26.8 ng/mL (30-100)
== END 2024-03-01 18:57 | disposition home or self-care (01) ==
LOC: NCHCN 18:56
PROVIDERS: PCP Nurse Practitioner Family; Visit Provider Nurse Practitioner Family
DX: Z00.00 Encounter for general adult medical examination without abnormal findings (principal)
CPT/HCPCS: 80053; 82306; 85027; 84443

== ENCOUNTER 2024-09-18 11:23 | Outpatient (REF) | payer BC, SELFPAY ==
--- NOTE | 2024-09-18 10:45 | PAPFT_PTH ---
PATIENT: Jen Luke LOC: [facility] U#:[id number] AGE/SX: 44/F ROOM: RE09/18/[address]: Keisha Holly : 1980 BED: DIS: 09/18/2024 SPEC #: [id number] RECD: 09/18/24 12:55 STATUS: BUNNY REWellington #: [id number] LEO: 09/18/24 10:[address]: Keisha Holly DEPT: [facility] Cytology RECD BY: Luann Perez ENTERED: 09/18/24 12:56 SP TYPE: PAPFT OTHR DR: Maribeth Mckeon Tissues: 1 - CX/ENDOCX FOR PAP SMEARS Procedures: PAP THIN PREP/UVM Screening HPV DNA PROBE Comments: [id number] (HPV 16 & 18/45)
== END 2024-09-18 11:24 | disposition home or self-care (01) ==
LOC: LBN 11:23
PROVIDERS: PCP Nurse Practitioner Family; Visit Provider Obstetrics & Gynecology Gynecology
DX: Z12.39 Encounter for other screening for malignant neoplasm of breast (principal); Z01.419 Encounter for gynecological examination (general) (routine) without abnormal findings; Z72.0 Tobacco use
CPT/HCPCS: 88142; 87624

== ENCOUNTER 2025-09-19 14:55 | Outpatient (REF) | payer BC, SELFPAY | END 2025-09-19 14:56 | disposition home or self-care (01) | LOC: LBN 14:55 | PROVIDERS: PCP Nurse Practitioner Family; Visit Provider Obstetrics & Gynecology | DX: Z12.4 Encounter for screening for malignant neoplasm of cervix (principal) | CPT/HCPCS: 88142; 87624 ==

== ENCOUNTER → 2025-10-17 00:17 | Outpatient (CLI) | payer OTHER, SELFPAY ==
--- NOTE | 2025-10-17 07:45 | DI.MAMMO_ITS ---
Exam(s) MAMMO SCREENING EXAM: MAMMO SCREENING CLINICAL HISTORY: screening,z12.39 TECHNIQUE: Bilateral full field digital CC and MLO mammographic images were obtained with 3D tomosynthesis and utilizing computer aided detection (CAD). COMPARISON: Comparison is made with prior examinations. FINDINGS: Masses/Architectural Distortion: No suspicious masses or areas of architectural distortion are present. Microcalcifications: No suspicious pleomorphic-type are seen. Skin Thickening/Nipple Retraction: None. IMPRESSION: 1. No significant interval change with no specific features of malignancy noted. 2. Unless there is more urgent need, screening mammography is recommended, as per [employer] guidelines. BI-RADS Category 1 - Negative Breast Density - Category C - The breast are heterogeneously dense, which may obscure small masses. Breast density Category C or D implies that the patient has dense breast tissue. Dense breast tissue can make it harder to find cancer on a mammogram. Dense breast tissue is also associated with an increased risk of breast cancer. This information about the result of the mammogram report was provided to the patient to raise their awareness. Use this report when you speak with the patient about their risks for breast cancer, which includes their family history. At that time, you may recommend additional screening tests (Ultrasound or MRI) as these tests may add significant information. A negative radiographic report should not delay biopsy if a dominant or clinically suspicious mass is present. Up to ten percent of cancers are not identified on mammography. A negative report may reinforce clinical impression. Adenosis and dense breasts may obscure an underlying neoplasm. False positive reports average 6 to 10%. Patient will receive a letter notifying them of these results.
== END ==
LOC: DI 00:17
PROVIDERS: PCP Nurse Practitioner Family; Visit Provider Obstetrics & Gynecology
DX: Z12.31 Encounter for screening mammogram for malignant neoplasm of breast (principal)
CPT/HCPCS: 77063; 77067